=== PATIENT | male | born 1965 | race Caucasian/White ===

== ENCOUNTER 2018-01-30 15:15 | Emergency (ER) | payer OTHER ==
[~2018-01-30] VITALS: Ht 165.1 cm; Wt 92.5 kg
[~2018-01-30 15:15] MED LIST: ACID REDUCER OTC PO; ALTOPREV20 MG PO; ANTARA130 MG PO; ASPIRIN81 M2 PO; BENADRYL ALLERG25 MG PO; BENADRYL25 MG PO; DIOVAN HCT 31 TABLE1 PO; DIVALPROEX SOD250 MG PO; FENOGLIDE120 MG PO; FLOMAX0.4 MG PO; FLUID PILL; GLUCOPHAGE1000 MG PO; HTN; LASIX10 MG PO; LASIX20 MG PO; LEVAQUIN750 MG PO; LOFIBRA,TRIGLI160 MG PO; LOPRESSOR50 MG PO; LOVASTATIN20 MG PO; METFORMIN HCL1000 MG PO; METFORMIN HCL500 MG PO; METOPROL PO; METOPROLOL TAR100 MG PO; METOPROLOL TART50 MG PO; MIRTAZAPINE15 MG PO; NAPROXEN500 MG PO; NIACIN500 M1 PO; NORCO 5/3251 TABLET PO; OMEPRAZOLE20 MG PO; PERCOCET 5/31 TABLET PO; PREDNISONE20 MG PO; PRILOSEC20 MG PO; TOPROL XL50 MG PO; TYLENOL REGULA325 MG PO; UNKNOWN BP MED; ZESTRIL,PRINIVI20 MG PO
[2018-01-30 16:09] LABS: HEMATOCRIT 43.6 % (38.0-50.0); HEMOGLOBIN 15.2 G/DL (12.5-16.6); MCH 29.4 PG (29.0-34.0); MCHC 34.9 G/DL (30.0-36.0); MCV 84.3 FL (86-99); PLATELET COUNT 179 K/uL (156-360); RBC DIS.WIDTH-CV 13.5 % (11.8-14.6); RBC DIS.WIDTH-SD 41.7 % (39-53); RED BLOOD COUNT 5.17 M/uL (4.00-5.50); WHITE BLOOD COUNT 14.7 K/uL (4.1-10.2)
[2018-01-30 16:23] LABS: CHLORIDE 106 mEq/L (99-109); POTASSIUM 3.8 mEq/L (3.7-5.4); SODIUM 139 mEq/L (136-147)
[2018-01-30 16:25] LABS: GLUCOSE 111 mg/dL (70-99)
[2018-01-30 16:29] LABS: CREATININE 1.1 mg/dL (0.6-1.3); GFR ESTIMATE (CALCULATED) > 59 mL/min/ (58.99-99999)
[2018-01-30 16:30] LABS: UREA NITROGEN (BUN) 11 mg/dL (9-23)
[2018-01-30] MEDS ORDERED: TESSALON PERLE100 MG PO (17:11)
[2018-01-30] MEDS ORDERED: MOTRIN800 MG PO (17:11)
[2018-01-30] MEDS ORDERED: VENTOLIN HFA18 GM IH (17:11)
[2018-01-30 17:25] VITALS: BP 124/81
== END 2018-01-30 17:30 | disposition home or self-care (01) ==
LOC: EME 15:15 → ENRESERV 02-03 23:28 → CANRESERV 02-03 23:28
PROVIDERS: Nurse Practitioner Family
DX: J06.9 Acute upper respiratory infection, unspecified (principal); F17.210 Nicotine dependence, cigarettes, uncomplicated; I10 Essential (primary) hypertension; K21.9 Gastro-esophageal reflux disease without esophagitis; F41.9 Anxiety disorder, unspecified; Z87.442 Personal history of urinary calculi; Z88.1 Allergy status to other antibiotic agents; Z88.2 Allergy status to sulfonamides
CPT/HCPCS: 71046; 80048; 85027; 94640; 99281; 99284; J7512

== ENCOUNTER 2018-02-03 17:15 | Inpatient (IN) | payer OTHER ==
[~2018-02-03] VITALS: Ht 165.1 cm; Wt 92.4 kg
[~2018-02-03 17:15] MED LIST changes: +MOTRIN800 MG PO; +TESSALON PERLE100 MG PO; +VENTOLIN HFA18 GM IH
[2018-02-03 18:30] LABS: HEMATOCRIT 42.7 % (38.0-50.0); HEMOGLOBIN 14.7 G/DL (12.5-16.6); MCH 28.8 PG (29.0-34.0); MCHC 34.4 G/DL (30.0-36.0); MCV 83.7 FL (86-99); RBC DIS.WIDTH-CV 13.3 % (11.8-14.6); RBC DIS.WIDTH-SD 40.8 % (39-53); WHITE BLOOD COUNT 16.7 K/uL (4.1-10.2)
[2018-02-03 18:31] LABS: PLATELET COUNT 271 K/uL (156-360)
[2018-02-03 18:41] LABS: CHLORIDE 104 mEq/L (99-109); POTASSIUM 3.7 mEq/L (3.7-5.4); SODIUM 139 mEq/L (136-147)
[2018-02-03 18:43] LABS: GLUCOSE 102 mg/dL (70-99)
[2018-02-03 18:46] LABS: CREATININE 1.1 mg/dL (0.6-1.3); GFR ESTIMATE (CALCULATED) > 59 mL/min/ (58.99-99999)
[2018-02-03 18:47] LABS: UREA NITROGEN (BUN) 11 mg/dL (9-23)
[2018-02-03 18:57] LABS: TROP-I INTERPRETATION NEGATIVE; TROPONIN-I < 0.01 ng/mL (0.0-0.30)
[2018-02-04 00:47] VITALS: BP 140/98
[2018-02-04 04:00] VITALS: BP 136/90
[2018-02-04 05:44] LABS: BASOPHIL (%) 0.6 % (0-1); BASOPHIL COUNT 0.1 K/uL (0-0.1); EOSINOPHIL (%) 1.5 % (0-5); EOSINOPHIL COUNT 0.2 K/uL (0-0.3); HEMATOCRIT 39.7 % (38.0-50.0); LYMPHOCYTE (%) 20.2 % (15-42); LYMPHOCYTE COUNT 2.6 K/uL (1.0-2.8); MCH 28.4 PG (29.0-34.0); MCHC 32.7 G/DL (30.0-36.0); MCV 86.9 FL (86-99); MONOCYTE (%) 8.1 % (3-12); NEUTROPHIL (%) 64.6 % (45-76); NEUTROPHIL COUNT 8.3 K/uL (1.8-6.4); PLATELET COUNT 239 K/uL (156-360); RBC DIS.WIDTH-CV 13.6 % (11.8-14.6); RBC DIS.WIDTH-SD 43.6 % (39-53); RED BLOOD COUNT 4.57 M/uL (4.00-5.50); WHITE BLOOD COUNT 12.8 K/uL (4.1-10.2)
[2018-02-04 06:06] LABS: CHLORIDE 105 MEQ/L (99-109); CREATININE 1.3 MG/DL (0.6-1.3); GFR ESTIMATE (CALCULATED) > 59 mL/min/ (58.99-99999); POTASSIUM 3.7 MEQ/L (3.7-5.4); SODIUM 142 MEQ/L (136-147); UREA NITROGEN (BUN) 12 mg/dL (9-23)
[2018-02-04 06:21] LABS: GLUCOSE 157 mg/dL (70-99)
[2018-02-04 07:41] VITALS: BP 165/90
[2018-02-04 15:24] VITALS: BP 174/101
[2018-02-04 19:41] VITALS: BP 164/87
[2018-02-04 23:36] VITALS: BP 163/92
[2018-02-05 03:43] VITALS: BP 160/104
[2018-02-05 05:31] LABS: HEMOGLOBIN 12.9 G/DL (12.5-16.6); MCH 28.5 PG (29.0-34.0); MCHC 33.1 G/DL (30.0-36.0); MCV 86.1 FL (86-99); PLATELET COUNT 245 K/uL (156-360); RBC DIS.WIDTH-CV 13.5 % (11.8-14.6); RBC DIS.WIDTH-SD 42.3 % (39-53); RED BLOOD COUNT 4.53 M/uL (4.00-5.50); WHITE BLOOD COUNT 9.6 K/uL (4.1-10.2)
[2018-02-05 08:11] VITALS: BP 158/100
[2018-02-05 11:26] VITALS: BP 151/89
[2018-02-05 16:04] VITALS: BP 145/88
[2018-02-05 20:00] VITALS: BP 138/76
[2018-02-06 00:32] VITALS: BP 129/64
[2018-02-06 04:00] VITALS: BP 125/60
[2018-02-06 07:35] VITALS: BP 134/69
[2018-02-06 11:28] LABS: HEMOGLOBIN A1c (GLYCOHEMOGLOB) 6.3 % (Below 5.7)
[2018-02-06 11:44] VITALS: BP 107/59
[2018-02-06 16:05] VITALS: BP 129/70
[2018-02-06 19:29] VITALS: BP 122/84
[2018-02-07 00:06] VITALS: BP 148/66
[2018-02-07 03:51] VITALS: BP 133/92
[2018-02-07 07:35] VITALS: BP 132/89
[2018-02-07] MEDS ORDERED: METFORMIN HCL500 MG PO (07:35)
[2018-02-07] MEDS ORDERED: LEVAQUIN750 MG PO (07:35)
[2018-02-07] MEDS ORDERED: NIFEDIPINE ER30 MG PO (07:35)
[2018-02-07] MEDS ORDERED: ADVAIR HFA120 INHALA IH (07:35)
[2018-02-07] MEDS ORDERED: PREDNISONE10 MG PO (07:35)
[2018-02-07] MEDS ORDERED: PROBIOTIC1 EAC1 PO (07:36)
== END 2018-02-07 12:45 | disposition home or self-care (01) | DRG 194 ==
LOC: EME 17:15 → EDOF 22:58 → 5SOUTH 22:58 → ENRESERV 23:00 → 5SOUTH 02-04 00:18
PROVIDERS: Hospitalist; Nurse Practitioner Family; Physician Assistant
DX: J18.9 Pneumonia, unspecified organism (principal); J44.0 Chronic obstructive pulmonary disease with (acute) lower respiratory infection; J44.1 Chronic obstructive pulmonary disease with (acute) exacerbation; I10 Essential (primary) hypertension; E11.65 Type 2 diabetes mellitus with hyperglycemia; T38.0X5A Adverse effect of glucocorticoids and synthetic analogues, initial encounter; F17.200 Nicotine dependence, unspecified, uncomplicated; E66.9 Obesity, unspecified; Z68.33 Body mass index [BMI] 33.0-33.9, adult; R13.10 Dysphagia, unspecified; Z63.4 Disappearance and death of family member; F32.9 Major depressive disorder, single episode, unspecified; K21.9 Gastro-esophageal reflux disease without esophagitis
CPT/HCPCS: 71046; 71275; 80048; 82948; 83036; 83605; 84484; 85025; 85027; 85379; 87040; 87070; 87116; 87205; 87206; 87449; 87493; 87651 90; 93005; 93970; 94640; 94799; 99281; 99285; J0456; J1650; J1815; J2543; J2920; J7030; J7050